=== PATIENT | female | born 1995 | race Caucasian/White ===

== ENCOUNTER 2019-09-14 15:59 | Emergency (ER) | payer OTHER, SELFPAY ==
[2019-09-14 16:00] VITALS: BP 133/78; PULSE 83; RESP 15; TEMP 36.4; O2SAT 100
[2019-09-14 18:43] VITALS: BP 129/74; PULSE 87; RESP 16; TEMP 36.4; O2SAT 99
[2019-09-14 18:43] LABS: Absolute Lymphocyte Count 2.71 X10^3/uL (0.83-4.51); Absolute Neutrophil Count 5.7 X10^3/uL (2.0-7.7); Basophil# 0.04 X10^3/uL; Basophil% 0.4 % (0-1); Eosinophil# 0.13 X10^3/uL; Eosinophils% 1.4 % (0-5); Hematocrit 35.9 % (37-47); Hemoglobin 12.2 g/dL (12.0-15.0); Lymphocyte # 2.71 X10^3/ul (4.0); Lymphocyte % 29.5 % (19-41); Mean Corpuscular Hgb 29.8 pg (27.0-32.0); Mean Corpuscular Volume 87.8 fL (81-99); Mean Platelet Vol. 11.2 fl (6.2-12.0); Monocyte# 0.61 X10^3/uL; Monocyte% 6.6 % (0-10); NRBC Flagged by Analyzer 0 % (0-5); Neutrophil # 5.67 X10^3/uL (2.7-7.7); Neutrophil % 61.7 % (47-70); Platelet Count 261 K/mm3 (150-450); RBC Distribution Width CV 11.9 % (11.6-14.6); RBC Distribution Width SD 38.5 fl (35.1-43.9); Red Blood Count 4.09 M/mm3 (4.2-5.4); White Blood Count 9.2 K/mm3 (4.4-11.0)
[2019-09-14] MEDS: Acetaminophen 500 MG Tablet 1000 MG PO (18:44)
[2019-09-14] MEDS: 0.9% Normal Saline 1,000 ML 1000 ML IV (18:45)
[2019-09-14] MEDS: Ondansetron 4 MG/2 ML Vial IV (18:45)
[2019-09-14 18:53] LABS: Mucous, Urine 0 SEEN /hpf (<or=2+); Red Blood Cells-Urine 0 SEEN /hpf (0-5)
--- NOTE | 2019-09-14 18:55 | ED.DCSUM_ITS ---
History of Present Illness Chief Complaint: Nausea/Vomiting/Diarrhea Informant: Patient Onset: Days Context: Gradual Onset Current Severity: Moderate Maximum Severity: Moderate Narrative: Patient was sent over from urgent care secondary to nausea, vomiting, and diarrhea. Patient is currently 9 weeks . She has had these symptoms for the last 3 days. She denies any abdominal cramping. She was started on Keflex for a UTI approximately 6 days ago. She believes she had a slight fever yesterday. She denies abdominal or back pain currently. She denies spotting or bleeding. Past Medical History - Allergies and Home Meds Allergies/Adverse Reactions: Allergies clindamycin Allergy (Verified 09/14/19 16:03) Rash Penicillins Allergy (Verified 09/14/19 16:03) Rash Primary Care Physician: Ankur Becerra MD [Primary Care Provider] - Past Medical History: - - Currently 9 weeks (G1, P0, Ab0) Lives: Spouse/ Significant Other Smoking Status: Former smoker Review of Systems General: Reports: Fever, Subjective Eyes: Denies: Visual changes - bilaterally ENT: Denies: Bilateral ear pain Cardiovascular: Denies: Chest pain Respiratory: Denies: Dyspnea, Cough Gastrointestinal: Reports: Nausea, Vomiting, Diarrhea. Denies: Abdominal pain Genitourinary: Denies: Dysuria Musculoskeletal: Denies: Back pain, Extremity Pain Skin: Denies: Rash Neurological: Denies: Headache Allergy: Denies: Uticaria Physical Exam Vital Signs/Narrative: Vital Signs Temp Pulse Resp BP Pulse Ox 09/14/19 18:43 97.6 F L 87 16 129/74 H 99 09/14/19 16:00 97.6 F L 83 15 133/78 H 100 Inital Vital Signs reviewed: Yes General: Well nourished, Well developed Head: Normocephalic ENT: Moist mucous membranes Neck: Supple Cardiovascular: Regular rate, Regular rhythm Respiratory: No distress, CTA bilaterally Abdomen: Soft, Nontender, Normal bowel sounds Back: Nontender Extremities: Nontender Skin: Normal color Neurological: Alert, Oriented x3 Psychological: Normal affect Diagnostic/Tx/Re-eval Laboratory Results 09/14/19 09/14/19 09/14/19 18:27 18:27 18:40 WBC 9.2 RBC 4.09 L Hgb 12.2 Hct 35.9 L MCV 87.8 MCH 29.8 MCHC 34.0 RDW Std Deviation 38.5 RDW Coeff of Kelly 11.9 Plt Count 261 MPV 11.2 Immature Gran % (Auto) 0.400 Neut % (Auto) 61.7 Lymph % (Auto) 29.5 [place] % (Auto) 6.6 Eos % (Auto) 1.4 Baso % (Auto) 0.4 Absolute Neuts (auto) 5.7 Absolute Lymphs (auto) 2.71 Nucleated RBC % 0 Sodium 138 Potassium 3.8 Chloride 110 H Carbon Dioxide 23.0 Anion Gap 5 BUN 7 Creatinine 0.58 Estim Creat Clear Calc 124.22 Est GFR (MDRD) Af Amer 165 Est GFR (MDRD) Non-Af 136 BUN/Creatinine Ratio 12.1 Glucose 79 Calcium 8.7 Urine Color Yellow Urine Clarity Cloudy Urine pH 8.0 Ur Specific [place] 1.015 Urine Protein Negative Urine Glucose (UA) Normal Urine Ketones 15 H Urine Occult Blood Negative Urine Nitrite Negative Urine Bilirubin Negative Urine Urobilinogen Normal Ur Leukocyte Esterase 100 H Urine RBC 0 SEEN Urine WBC 0-5 SEEN Ur Squamous Epith Cells 5-10 SEEN Amorphous Sediment 2+ Urine Bacteria 2+ Urine Mucus 0 SEEN - Medical Decision Making Patient was given IV fluids, Zofran, and Tylenol. On repeat evaluation she does feel improved. Lab work is unremarkable. Patient will be given a prescription for Zofran. She was encouraged to call her HEALTH SANITARIAN for close follow-up. Return for worsening symptoms. ED Disposition - Plan for ED Patient: Disposition: Home or Assisted Living Diagnosis: Vomiting Instructions: VOMITING AND DIARRHEA, Nonspecific (Adult) Prescriptions: Ondansetron [Zofran Odt] 4 mg PO Q8H PRN PRN #10 tab PRN Reason: Nausea Transmission Status: Pending to [id number] Referrals: Ankur Becerra MD [Primary Care Provider] - Razia Gomze MD [STAFF PHYSICIAN] - 1 Week
[2019-09-14 18:58] LABS: Anion Gap 5 (5-15); BUN 7 mg/dL (7-18); BUN/Creat Ratio 12.1 RATIO (10-20); Calcium,Total 8.7 mg/dL (8.5-10.1); Chloride 110 mmol/L (98-107); Creatinine, Serum 0.58 mg/dL (0.55-1.02); EST Glomerular Filtration Rate 136 mL/min (>60); Est Glom Filt Rate - Afr Amer 165 mL/min (>60); Estimated Creatinine Clearance 124.22 ml/min; Glucose 79 mg/dL (74-106); Potassium 3.8 mmol/L (3.5-5.1); Sodium Level 138 mmol/L (136-145)
[2019-09-14 19:00] LABS: Color, Urine Yellow (Yellow); Glucose, Dipstick Normal (Normal); Ketone-Dipstick 15 mg/dl (Negative); Leukocyte Esterase-Dipstick 100 /ul (Negative); Nitrite-Dipstick Negative (Negative); Occult Blood-Urine Negative /ul (Negative); Protein-Dipstick Negative (Negative); Specific Gravity, Urine 1.015 (1.002-1.030); Urine Bilirubin Dipstick Negative (Negative); Urine Clarity Cloudy (Clear); Urine Urobilinogen Normal (Normal)
[2019-09-14 19:10] LABS: Amorphous Sediment 2+; Bacteria 2+ /hpf (None Seen); Squamous Epithelial Cells - UA 5-10 SEEN /hpf (5-10); White Blood Cells 0-5 SEEN /hpf (0-5)
[2019-09-14 20:01] VITALS: BP 106/50; PULSE 79; RESP 18; O2SAT 100
== END 2019-09-14 20:02 | disposition home or self-care (01) ==
PROVIDERS: Emergency Provider Emergency Medicine; PCP Family Medicine
DX: O26.891 Other specified pregnancy related conditions, first trimester (principal); R11.2 Nausea with vomiting, unspecified; R19.7 Diarrhea, unspecified; Z3A.09 9 weeks gestation of pregnancy; Z87.891 Personal history of nicotine dependence
CPT/HCPCS: 80048; 81001; 85025; 96361; 96374; 99283; J7030; A4216; J2405

== ENCOUNTER 2020-01-10 14:53 | Observation (INO) | payer OTHER, SELFPAY ==
[2020-01-10] VITALS (9 sets, daily range): BP systolic 104–131; BP diastolic 59–77; PULSE 83–107; RESP 14–16; TEMP 36.8–37; O2SAT 98–100; BMI 24.3
--- NOTE | 2020-01-10 15:16 | CT_ITS ---
We are attempting to reach an attending provider to discuss findings. An addendum with communication details will be sent when the communication is complete. STUDY: CT ABDOMEN AND PELVIS WITH CONTRAST REASON FOR EXAM: Female, 24 years old. Right lower quadrant pain. patient. RADIATION DOSAGE (If Supplied By Facility): CTDIvol = ( 9.27 ) mGy, DLP = ( 395.75 ) mGycm TECHNIQUE: Transaxial images were obtained from the dome of the diaphragm to the symphysis pubis with oral contrast. Oral and amp; IV Gastrografin and amp; 100mL Isovue-300 was administered. Sagittal and coronal images were reconstructed. Individualized dose optimization techniques were used for this CT. COMPARISON: None. FINDINGS: The visualized lung bases are unremarkable. The visualized portions of the heart are within normal limits. Normal liver. Normal gallbladder and extrahepatic biliary system. Normal spleen. Normal pancreas. Normal bilateral adrenal glands. Both kidneys show hydronephrosis, mild on the right and trace on the left. This is consistent with the 25 week . Normal visualized stomach. Normal small intestine. Normal colon. There is a tubular, thick-walled appendix (>7mm), consistent with acute appendicitis. Appendix measures 1.5 cm greatest dimension. It has little if any significant adjacent inflammation and can be seen on axial images 57-71. No evidence for perforation or abscess. Normal abdominal aorta. Normal inferior vena cava. Normal retroperitoneum. Normal urinary bladder. There is a grossly normal-appearing second trimester intrauterine gestation. Normal abdominal wall. Normal osseous structures. CT/Abdomen/Pelvis WITH Contrast IMPRESSION: Findings consistent with uncomplicated appendicitis. Electronically Signed: Zachery Mckeon MD at 17:35 EDT , Service support ,
--- NOTE | 2020-01-10 15:19 | ED.VISSUMM ---
- ER Visit Summary Date of Service: 01/10/20 Chief Complaint: Right lower quadrant pain History of Present Illness: The patient is a 24 F presenting with right lower quadrant abdominal pain. She states this started yesterday afternoon. She complains of nausea with no vomiting. She denies urinary complaints or back pain. Denies fever. She is G1, P0, 26 weeks . She denies vaginal bleeding. She saw her OIL FIELD EQUIPMENT MECHANIC SUPERVISOR today, Dr Borrego. She was concerned about possibility of appendicitis and sent her to the ED for further evaluation. Physical Examination: Vitals are stable. Patient is afebrile. Alert no acute distress. HEENT exam is unremarkable. Neck is supple. Lungs are clear and equal bilaterally. Heart is regular rate and rhythm. Abdomen is soft gravid, RLQ tenderness. Extremities are unremarkable. Skin is warm and dry. Remainder of exam is unremarkable. Emergency Department Course and Treatment: CBC shows white count 14.9, hemoglobin 11.8. Chemistries unremarkable. CT abdomen pelvis shows appendicitis. She has allergies to clindamycin and penicillin, she was given Cefotan. Discussed with Dr. Borrego and Dr. Amezquita. Patient will be taken to the operating room. Disposition: To OR Impression: Appendicitis, This note was generated with [employer] dictation software. It may contain incorrect words, spelling, and punctuation that were not noted in review of the chart prior to signing ED Disposition - Plan for ED Patient: Referrals: Ankur Becerra MD [Primary Care Provider] -
[2020-01-10 15:45] LABS: Absolute Lymphocyte Count 2.13 X10^3/uL (0.83-4.51); Absolute Neutrophil Count 11.6 X10^3/uL (2.0-7.7); Basophil# 0.03 X10^3/uL; Basophil% 0.2 % (0-1); Eosinophils% 0.7 % (0-5); Hematocrit 35.8 % (37-47); Hemoglobin 11.8 g/dL (12.0-15.0); Lymphocyte # 2.13 X10^3/ul (4.0); Lymphocyte % 14.3 % (19-41); Mean Platelet Vol. 10.6 fl (6.2-12.0); Monocyte# 0.86 X10^3/uL; Monocyte% 5.8 % (0-10); NRBC Flagged by Analyzer 0 % (0-5); Neutrophil # 11.61 X10^3/uL (2.7-7.7); Neutrophil % 78.1 % (47-70); Platelet Count 281 K/mm3 (150-450); RBC Distribution Width CV 13.2 % (11.6-14.6); RBC Distribution Width SD 44.9 fl (35.1-43.9); Red Blood Count 3.81 M/mm3 (4.2-5.4); White Blood Count 14.9 K/mm3 (4.4-11.0)
[2020-01-10 16:01] LABS: ALB/GLOB Ratio 0.7 RATIO (0.9-2.4); AST(SGOT) 8 U/L (15-37); Alanine Aminotransfer ALT/SGPT 19 U/L (13-56); Albumin, Serum 3.1 g/dL (3.2-5.0); Alkaline Phosphatase 105 U/L (45-117); Anion Gap 5 (5-15); BUN 6 mg/dL (7-18); BUN/Creat Ratio 12.7 RATIO (10-20); Calcium,Total 8.7 mg/dL (8.5-10.1); Chloride 105 mmol/L (98-107); Creatinine, Serum 0.47 mg/dL (0.55-1.02); EST Glomerular Filtration Rate 172 mL/min (>60); Est Glom Filt Rate - Afr Amer 208 mL/min (>60); Estimated Creatinine Clearance 139.28 ml/min; Globulin 4.3 g/dL (2.2-4.2); Glucose 74 mg/dL (74-106); Potassium 3.8 mmol/L (3.5-5.1); Protein, Total 7.4 g/dL (6.4-8.2); Sodium Level 137 mmol/L (136-145)
--- NOTE | 2020-01-10 18:32 | PCM.CONS.GEN ---
Problem List (1) Acute appendicitis Status: Acute Qualifiers: Acute appendicitis type: with localized peritonitis Appendicitis gangrene presence: unspecified whether gangrene present Appendicitis perforation presence: without perforation Appendicitis abscess presence: without abscess Qualified Code(s): K35.30 - Acute appendicitis with localized peritonitis, without perforation or gangrene Reason for Consult Date of Consultation: 01/10/20 History of Present Illness: The patient is a 24 F presenting with right lower quadrant abdominal pain. She states this started yesterday afternoon. She complains of nausea with no vomiting. She denies urinary complaints or back pain. Denies fever. She is G1, P0, 26 weeks . She denies vaginal bleeding. She saw her DIRECTOR HR COMMUNICATIONS today, Dr Borrego. She was concerned about possibility of appendicitis and sent her to the ED for further evaluation. Patient underwent a CAT scan of her abdomen and pelvis which showed an uncomplicated acute appendicitis. Past Medical History Allergies clindamycin Allergy (Verified 01/10/20 14:54) Rash Penicillins Allergy (Verified 01/10/20 14:54) Rash Home Medications: Ambulatory Orders Medication Instructions Recorded Ondansetron [Zofran Odt] 4 mg PO Q8H PRN PRN #10 tab 09/14/19 Caplet 1 tab PO DAILY 09/14/19 Surgical History: - - Patient has had surgery on her right foot Smoking Status: Never smoker - *Family History Maternal History Items: No pertinent history Review of Systems Cardiovascular: Denies: Chest Pain, Chest Pressure, Chest Tightness, Palpitations Respiratory: Denies: Cough, Hemoptysis, Shortness of breath at rest, Shortness of breath upon exertion, Wheezing Gastrointestinal: Reports: Abdominal Pain Genitourinary: Denies: Dysuria, Frequency, Hematuria, Urgency Patient Problems: Active and Suspected Problems Acute appendicitis (Acute) - Physical Exam Vitals/I&O's: Vital Signs Temp Pulse Resp BP Pulse Ox 98.6 F 102 H 15 117/59 L 100 01/10/20 14:54 01/10/20 14:54 01/10/20 14:54 01/10/20 14:54 01/10/20 14:54 Oxygen Delivery Method Room Air Weight: 128 lb 15.527 oz Body Mass Index (BMI) 24.3 General: Alert, Oriented x3 Lungs: Clear to auscultation Cardiovascular: Regular rate, Regular Rhythm, No murmurs Abdomen: Tender - Patient has peritoneal irritation in the right lower quadrant. Her abdomen is soft. Uterus is palpated above the umbilicus. Extremities: No clubbing, No cyanosis, No edema Laboratory Results 01/10/20 15:35: WBC 14.9 H, RBC 3.81 L, Hgb 11.8 L, Hct 35.8 L, MCV 94.0, MCH 31.0, MCHC 33.0, RDW Std Deviation 44.9 H, RDW Coeff of Kelly 13.2, Plt Count 281, MPV 10.6, Immature Gran % (Auto) 0.900, Neut % (Auto) 78.1 H, Lymph % (Auto) 14.3 L, [place] % (Auto) 5.8, Eos % (Auto) 0.7, Baso % (Auto) 0.2, Absolute Neuts (auto) 11.6 H, Absolute Lymphs (auto) 2.13, Nucleated RBC % 0 01/10/20 15:35: Sodium 137, Potassium 3.8, Chloride 105, Carbon Dioxide 27.0, Anion Gap 5, BUN 6 L, Creatinine 0.47 L, Estim Creat Clear Calc 139.28, Est GFR (MDRD) Af Amer 208, Est GFR (MDRD) Non-Af 172, BUN/Creatinine Ratio 12.7, Glucose 74, Calcium 8.7, Total Bilirubin 0.60, AST 8 L, ALT 19, Alkaline Phosphatase 105, Total Protein 7.4, Albumin 3.1 L, Globulin 4.3 H, Albumin/Globulin Ratio 0.7 L Current Medications Cefotetan Disodium 1 gm/ (Sodium Chloride) 50 mls @ 100 mls/hr IV PREOP ONE Stop: 01/10/20 18:48 Assessment/Plan All Active Problems Acute appendicitis (Acute) Physical exam, pre-employment (Acute) My plan is to perform an open appendectomy. Risk benefits to include bleeding and infection possible wound infection possible needing to have further surgeries if she had developed an abscess. She also understands that there is a slight risk of blood clots heart attacks pneumonia strokes up to including but realistically in her age group these are significantly low. Patient also understands that there is a chance that she could go into labor I believe by doing this in an open fashion this will give her her best chance that this will not happen and has the least risk associated to her uterus fetus. I had time to ask questions I answered them. She is willing to proceed. This is an emergency case. I do not believe COVID applies. Office Visits / Consults: [id number] IP Consult L4
[2020-01-10 18:57] LABS: Bacteria 0 SEEN /hpf (None Seen); Mucous, Urine 0 SEEN /hpf (<or=2+); Red Blood Cells-Urine 0 SEEN /hpf (0-5); White Blood Cells 0 SEEN /hpf (0-5)
--- NOTE | 2020-01-10 19:00 | APP_PTH ---
PATIENT: YUNIOR ZUNIGA LOC: [facility] U#:[id number] AGE/SX: 24/F ROOM: WP014 RE01/10/[address]: Dr. Tawanda Amezquita MD : 1995 BED: 1 DIS: 01/11/2020 SPEC #: [id number] RECD: 01/11/20 07:35 STATUS: HOPE RESylvester #: [id number] PARUL: 01/10/20 19:[address]: Tawanda Amezquita DEPT: SURGICAL PATHOLOGY RECD BY: Frank Barrera ENTERED: 01/11/20 09:28 SP TYPE: APPENDIX OTHR DR: Dr. Ankur Becerra MD Tissues: Appendix, NOS Procedures: Surgery Specimen Level III HEADER OPERATION: Appendectomy PRE-OP DIAGNOSIS: Acute appendicitis TISSUE SUBMITTED: Appendix MICROSCOPIC DIAGNOSIS Appendix, appendectomy: Acute appendicitis and periappendicitis. SINCERE:jone 01/12/20 MICROSCOPIC DESCRIPTION Slides are reviewed. GROSS DESCRIPTION Received is one container labeled with the patient's name and designated appendix. The specimen consists of an appendix measuring 6 cm in length and up to 1 cm in diameter. The attached periappendiceal adipose tissue measures up to 1 cm in width. The serosa is covered with caban, purulent exudate. No obvious perforation is identified. The lumen does not contain any fecalith. Despatch Clerk sections are submitted in one cassette. / SJ:jone 01/11/20 TC:2 CPT: 54323
[2020-01-10 19:33] LABS: Color, Urine Yellow (Yellow); Glucose, Dipstick Normal (Normal); Ketone-Dipstick 15 mg/dl (Negative); Leukocyte Esterase-Dipstick Negative /ul (Negative); Nitrite-Dipstick Negative (Negative); Occult Blood-Urine Negative /ul (Negative); Protein-Dipstick Negative (Negative); Specific Gravity, Urine 1.005 (1.002-1.030); Urine Bilirubin Dipstick Negative (Negative); Urine Clarity Clear (Clear); Urine Urobilinogen Normal (Normal)
--- NOTE | 2020-01-10 19:40 | PCM.OPRPT ---
Problem List (1) Acute appendicitis Status: Acute Qualifiers: Acute appendicitis type: with localized peritonitis Appendicitis gangrene presence: unspecified whether gangrene present Appendicitis perforation presence: without perforation Appendicitis abscess presence: without abscess Qualified Code(s): K35.30 - Acute appendicitis with localized peritonitis, without perforation or gangrene Report of Operation Date of Procedure: 01/10/20 Pre-Operative Diagnosis: Acute appendicitis Post-Operative Diagnosis: Same Surgery/Procedure Performed:: Open appendectomy Type of Anesthesia:: General Anesthesiologist: Henna aMtamoros Specimen's removed: Appendix Drains: none Estimated Blood Loss (mL): < 25 cc - Admit VTE Documentation VTE Present on Admission: No VTE Mechan Device Prophylaxis: SCD's VTE Pharm Prophylaxis ordered?: No Reason prophylaxis not ordered:: Treatment Not Indicated
[2020-01-10 19:44] LABS: Squamous Epithelial Cells - UA 0-5 SEEN /hpf (5-10)
[2020-01-10] MEDS: Bupivacaine Mpf 0.5% 30 ML VIAL (19:51)
--- NOTE | 2020-01-10 20:26 | PCM.OPRPT ---
Problem List (1) Acute appendicitis Status: Acute Qualifiers: Acute appendicitis type: with localized peritonitis Appendicitis gangrene presence: unspecified whether gangrene present Appendicitis perforation presence: without perforation Appendicitis abscess presence: without abscess Qualified Code(s): K35.30 - Acute appendicitis with localized peritonitis, without perforation or gangrene Report of Operation Date of Procedure: 01/10/20 Pre-Operative Diagnosis: Acute appendicitis Post-Operative Diagnosis: Same Surgery/Procedure Performed:: Open appendectomy Type of Anesthesia:: General Anesthesiologist: Henna Matamoros Specimen's removed: Appendix Drains: None Estimated Blood Loss (mL): < 25 cc Fluids Replaced: 1 l lr Description of Procedure: Patient was brought into the operating room. Placed in the supine position. Under excellent general trach intubation a towel roll was placed under her right side placing her somewhat on her left. The abdomen was then sterilely prepped and draped in usual fashion. Local was injected incision was made in the right lower quadrant. Dissection was carried down through the external oblique fascia I pulled the rectus muscle medially grabbed the posterior fascia with 2 Enma clamps entered the peritoneum and then lengthened medially and laterally my incision gaining access to the peritoneum without difficulty I grabbed the cecum with a Nat brought up an appendix which was acutely inflamed. It came down on the mesoappendix with a harmonic dissector I had excellent hemostasis I transected the base of the appendix with a 55 linear cutter once again I had excellent hemostasis. I placed a specimen back into the abdomen inspected the uterus no injuries were seen. I irrigated the pelvis and abdomen with 500 cc of warm irrigation and retrieved it through a pool sucker. I brought the posterior sheath together with 0 Vicryl running. I did cauterize some of the external bleak fascia I brought this together with interrupted 0 Vicryls and then I closed the external oblique fascia with a running 0 Vicryl. Local was injected. Subcu irrigated. The wound was then brought together in layers subcu was brought together with interrupted 2-0 Vicryl. Deep dermal stitches of 3-0 Vicryl. Then a running 4-0 Monocryl. Steri-Strips were applied sterile dressing was applied and the patient tolerated the procedure well. - Admit VTE Documentation VTE Present on Admission: No VTE Mechan Device Prophylaxis: SCD's VTE Pharm Prophylaxis ordered?: No Reason prophylaxis not ordered:: Treatment Not Indicated [id number]: [id number] APPY; RUPT APPENDIX [place] [address] nonruptured
[2020-01-10] MEDS: Lactated Ringers 1,000 ML 75 ML IV (21:55)
[2020-01-11] VITALS (7 sets, daily range): BP systolic 84–107; BP diastolic 46–67; PULSE 85–109; RESP 18; TEMP 36.2–36.7; O2SAT 92–99
[2020-01-11] MEDS: HYDROmorphone 1 MG/ML Syringe IV ×2 (02:03→04:21)
[2020-01-11] MEDS: oxyCODONE 5 MG Tablet 10 MG PO (07:47)
--- NOTE | 2020-01-11 08:11 | DCINST_ITS ---
Discharge Diet: Light diet - advance as tolerated - if you have questions about your diet instructions, please talk to you doctor. Discharge Activity: May Not Drive - for 3-5 days or while taking narcotic pain meds. May shower in (days): 1 Call your doctor if your incision/area has: Continuous Slow Oozing, Sudden Increased Bleeding, Increased Pain/ Swelling, Increased Redness, Foul Smelling Discharge Call your doctor if you observe: Fever of 101 or Higher Suture Line Care: Avoid Pulling/Pushing, Avoid Pinching/Bending Additional Dressing/Incision Instructions:: Keep dressing clean and dry. Change or remove dressing in 2 days. Leave steri strips for 1 week. May protect with a gauze bandaid. Medications to take at Discharge Ondansetron [Zofran Odt] 4 mg PO Q8H PRN PRN #10 tab 09/14/19 Caplet 1 tab PO DAILY 09/14/19 Oxycodone HCl/Acetaminophen [Percocet 5/325] 1 - 2 tablet PO Q4H PRN PRN 6 Days #30 tablet 01/11/20 Allergies/Adverse Reactions: Allergies clindamycin Allergy (Verified 01/10/20 14:54) Rash Penicillins Allergy (Verified 01/10/20 14:54) Rash The following prescriptions were given: Oxycodone HCl/Acetaminophen [Percocet 5/325] 1 - 2 tablet PO Q4H PRN PRN 6 Days #30 tablet PRN Reason: Pain Transmission Status: Sent to [id number] Primary Care Physician: Ankur Becerra MD [Primary Care Provider] - Test Results: Test results from this visit will be discussed in further detail at your follow- up appointment, if applicable. Please Follow Up With: Tawanda Amezquita MD - [phone] When: Call to make a follow up appointment with your doctor in 1 week.
== END 2020-01-11 09:00 | disposition home or self-care (01) ==
LOC: ED 15:17 → SDC 19:52 → AC 19:54 → WP 01-11 08:04
PROVIDERS: Admitting Provider Surgery; Emergency Provider Emergency Medicine; PCP Family Medicine; Visit Provider Surgery
PROC: (CPT 44950; principal; 2020-01-10 19:00)
DX: O99.612 Diseases of the digestive system complicating pregnancy, second trimester (principal); Z3A.26 26 weeks gestation of pregnancy; K35.30 Acute appendicitis with localized peritonitis, without perforation or gangrene
CPT/HCPCS: 44950; 59025; 59050; 74177; 80053; 81001; 85025; 88304; 99218; 99282; J7030; J7120; Q9967; A4216; G0378; J2405

== ENCOUNTER 2020-04-18 06:57 | Inpatient (IN) | payer SELFPAY ==
[2020-01-10 18:34] VITALS: BMI 24.3
[2020-04-18] VITALS (62 sets, daily range): BP systolic 108–146; BP diastolic 57–85; PULSE 72–101; TEMP 36.6–37.5; O2SAT 94–100; BMI 28.3
[2020-04-18] MEDS: Lactated Ringers 1,000 ML 50 ML IV (08:20)
[2020-04-18] MEDS: Oxytocin 30 units/NS 500 ml 30 UNITS/500 ML IV.SOLN IV (08:28)
[2020-04-18 08:34] LABS: Absolute Lymphocyte Count 2.15 X10^3/uL (0.83-4.51); Absolute Neutrophil Count 8.1 X10^3/uL (2.0-7.7); Basophil# 0.04 X10^3/uL; Basophil% 0.3 % (0-1); Eosinophil# 0.09 X10^3/uL; Eosinophils% 0.8 % (0-5); Hematocrit 32.4 % (37-47); Hemoglobin 10.7 g/dL (12.0-15.0); Lymphocyte # 2.15 X10^3/ul (4.0); Lymphocyte % 18.8 % (19-41); Mean Corpuscular Hgb 29.6 pg (27.0-32.0); Mean Corpuscular Volume 89.5 fL (81-99); Mean Platelet Vol. 12.4 fl (6.2-12.0); Monocyte# 0.91 X10^3/uL; NRBC Flagged by Analyzer 0 % (0-5); Neutrophil # 8.08 X10^3/uL (2.7-7.7); Neutrophil % 70.7 % (47-70); Platelet Count 200 K/mm3 (150-450); RBC Distribution Width CV 12.5 % (11.6-14.6); RBC Distribution Width SD 40.9 fl (35.1-43.9); Red Blood Count 3.62 M/mm3 (4.2-5.4); White Blood Count 11.4 K/mm3 (4.4-11.0)
[2020-04-18] MEDS: 0.9% Normal Saline Single 100 ML IV.SOLN. IY (08:36)
[2020-04-18] MEDS: Lactated Ringers 500 ML 999 ML IV (10:31)
[2020-04-18 11:33] LABS: Amphetamine Urine VISTA NEGATIVE (<1000 ng/mL); Barbiturate Urine VISTA NEGATIVE (< 200 ng/mL); Benzodiazepine Urine VISTA NEGATIVE (< 200 ng/mL); Cocaine Urine VISTA NEGATIVE (< 300 ng/mL); Ecstacy Urine VISTA NEGATIVE (< 500 ng/mL); Methadone Urine VISTA NEGATIVE (< 300 ng/mL); PCP Urine VISTA NEGATIVE (< 25 ng/mL); THC Urine VISTA POSITIVE (< 50 ng/mL); Vista UDS pH Range 7
[2020-04-18] MEDS: fentaNYL-bupivacaine (epidural) 100 ML BAG EPIDURAL (11:43)
--- NOTE | 2020-04-18 12:41 | PCM.HP.OB ---
History Date of Admission: 04/18/20 Final CHRISTELLE: 04/19/20 Final CHRISTELLE Source: US <20 weeks Gestational age: 39 Weeks and 6 Days History of this : This is a 24 year-old, para 1 para 0 at 39-6/7 weeks gestation presents for induction due to recommendation of maternal- medicine that the patient be delivered between 3940 weeks. Patient had Covid 19 during . Been undergoing weekly monitoring with biophysical profiles. This medical history is significant for mood disorder with anxiety and depression, herpes simplex virus Medical History: Medical History (Last Reviewed 01/17/20 @ 08:57 by Tatyana Denis) Acute appendicitis (Acute) K35.80 Physical exam, pre-employment (Acute) Z02.1 Surgical History: Surgical History (Last Reviewed 01/17/20 @ 08:57 by Tatyana Denis) Hx of appendectomy (Acute) Z90.49 01/10/2020 Allergies sertraline [From Zoloft] Allergy (Unknown, Verified 04/18/20 07:30) PT UNSURE OF REACTION makes her feel like a zombie clindamycin Allergy (Verified 04/18/20 07:30) Rash fluoxetine [From Prozac] Allergy (Verified 04/18/20 07:30) Rash Penicillins Allergy (Verified 04/18/20 07:30) Rash Home Medications: Home Medications Caplet 1 tab PO DAILY 09/14/19 Smoking Status: Former smoker Alcohol: None Substance Use Type: Marijuana, Opiates Number of Fetus(es): 1 NST - FHR Rate Baby A Baseline: normal Variability:: Moderate Accelerations:: 15 x 15 Decelerations:: None NST Reactive:: Yes FHR Category:: Category I Uterine Activity:: irreg ctxs History Past Pregnancies: Past Pregnancies Delivery Date Name GA/ Weeks Outcome Route Wt Sex Labor Length Anesthesia Delivery Location Provider FOB Expected Delivery Method: Spontaneous Vaginal Review of Systems Constitutional: Denies: Chills, Fever Eyes: Denies: Blurred vision Cardiovascular: Denies: Chest Pain Respiratory: Denies: Cough Gastrointestinal: Denies: Abdominal Pain, Diarrhea, Vomiting Genitourinary: Denies: Dysuria Skin: Denies: Rash Neurological: Denies: Blurred vision, Change in Speech, Slurred speech, Confusion Physical Exam Vitals: Vital Signs Temp Pulse BP Pulse Ox 99.3 F H 74 117/71 98 04/18/20 11:45 04/18/20 12:09 04/18/20 12:09 04/18/20 12:09 General: Alert, Cooperative, No apparent distress Cardiovascular: Regular rate Lungs: Normal air movement Abdomen: Soft, Non Tender, Non-Distended, Gravid, Appropriate for Gestational Age Extremities:: Other - edema 1+ Neurological: Neuro grossly intact Assessment/Plan All Active Problems (Last Reviewed 01/17/20 @ 08:57 by Tatyana Denis) Hx of appendectomy (Acute) Acute appendicitis (Acute) Physical exam, pre-employment (Acute) This is a 24 year-old, 1 para 0 at 39-6/7 weeks gestation for induction of labor due to history of COVID-19 infection early in . Risk benefits and alternatives to induction were discussed with the patient, questions were answered to her satisfaction, consent was signed and she desires to proceed. Estimated weight is less than 4000 g clinically and pelvis clinically adequate to expect vaginal delivery. May have epidural as needed. Will undergo Romero, artificial rupture membranes and Pitocin induction of labor as needed and indicated Procedure note: At approximately 8:30 AM a Romero catheter was placed over stylette through the internal cervical os in the usual sterile fashion without difficulty. The balloon was inflated with 30 cc of normal saline and placement over the internal os was confirmed. Fetus and patient tolerated the procedure well..
[2020-04-18] MEDS: Lactated Ringers 1,000 ML 200 ML IV (15:34)
[2020-04-18] MEDS: Oxytocin 30 units/NS 500 ml 30 UNITS/500 ML IV.SOLN 334 UNITS IV (17:40)
--- NOTE | 2020-04-18 18:01 | PCM.OPRPT ---
Vaginal Delivery Maternal Presentation: Medically Indicated Induction - h/o COVID 19 infection during Method of Induction: Pitocin, Romero Bulb, Amniotomy Amniotic Membrane Rupture Type: Artificial Amniotic Fluid Description: Clear Final CHRISTELLE: 04/19/20 Final CHRISTELLE Source: US <20 weeks Gestational age: 39 Weeks and 6 Days Date of Procedure: 04/18/20 Pre-Operative Diagnosis: labor Post-Operative Diagnosis: same Surgery/ Procedure Performed: Spontaneous Vaginal Delivery Type of Anesthesia: Epidural Description of Procedure: A vigorous male infant was delivered [GALO] over a second-degree vaginal laceration. [A loose nuchal cord ?1 was easily reduced.] The remainder the infant was delivered with maternal pushing and gentle traction only in less than 15 seconds. The Pitocin infusion was initiated for active management of the third stage. The cord was clamped and cut [after 1 minute]. The infant was attended to by the waiting nursing staff. The placenta was delivered spontaneously and intact. The cervix and vagina were intact. Degree vaginal laceration was repaired with 3-0 Vicryl suture in a running standard fashion. Stasis was noted. Sponge and needle counts were correct. A vaginal sweep was completed by me. Time and Date of delivery and service 04/18/2020, 5:36 PM Presentation: GALO Placental Delivery Description: Spontaneous Placenta Disposition: [facility] Cord Vessel Description: 3 Vessels Nuchal Cord Compression: Without compression Cord Entanglement: Around neck x 1, loose Drain: Romero to straight drain Estimated Blood Loss: 200 Infant A gender: Male (1 minute): 8 (5 minute): 9 Episiotomy Description: None Laceration: 2nd degree - vaginal Medications given after delivery: IV Pitocin Complications: None
[2020-04-18] MEDS: Acetaminophen 500 MG Tablet 1000 MG PO (19:04)
[2020-04-19] VITALS (14 sets, daily range): BP systolic 108–128; BP diastolic 55–79; PULSE 75–91; RESP 16; TEMP 36.2–36.9; O2SAT 95–99
[2020-04-19] MEDS: Acetaminophen 500 MG Tablet 1000 MG PO (04:50)
--- NOTE | 2020-04-19 10:21 | PCM.PN.OB ---
Subjective: Pain well controlled, average lochia - Physical Exam Vitals/I&O's: Vital Signs Temp Pulse Resp BP Pulse Ox 98.4 F 77 16 108/55 L 98 04/19/20 07:34 04/19/20 07:35 04/19/20 07:34 04/19/20 07:35 04/19/20 07:35 Oxygen Delivery Method Room Air Weight: 67.9 kg Body Mass Index (BMI) 28.3 Intake and Output for Last 24 Hours 04/17/20 04/18/20 04/19/20 23:59 23:59 23:59 Intake Total 2456.67 / 2456.67 Output Total 800 / 800 Balance 1656.67 / 1656.67 General: Alert, Cooperative, No apparent distress Laboratory Results 04/18/20 11:05: Urine Opiates Screen NEGATIVE, Urine Methadone Screen NEGATIVE, Ur Barbiturates Screen NEGATIVE, Ur Phencyclidine Scrn NEGATIVE, Ur Amphetamines Screen NEGATIVE, U Methamphetamin-MDMA NEGATIVE, U Benzodiazepines Scrn NEGATIVE, Urine Cocaine Screen NEGATIVE, U Cannabinoids Screen POSITIVE H, Ur Drug Screen Comment Current Medications Acetaminophen (Acetaminophen 500 Mg Tablet) 1,000 mg PO Q8H PRN PRN PRN Reason: Pain Score 1-10 Last Admin: 04/19/20 04:50 Dose: 1,000 mg Documented by: Bisacodyl (Bisacodyl 10 Mg Suppository) 10 mg RECTAL UD PRN PRN Reason: If no BM Dibucaine (Dibucaine 30 Gm Tube) 1 applic TOPICAL TID PRN PRN; Protocol PRN Reason: Discomfort Hydrocortisone (Hydrocortisone 2.5% Crm) 1 applic TOPICAL TID PRN PRN; Protocol PRN Reason: Discomfort Ibuprofen (Ibuprofen 600 Mg Tablet) 600 mg PO Q6H PRN PRN PRN Reason: Pain Score 1-10 Methylergonovine Maleate (Methylergonovine 0.2 Mg/Ml Ampul) 0.2 mg IM X1 PRN PRN Reason: Excess bleeding/uterine atony Ondansetron HCl (Ondansetron 4 Mg/2 Ml Vial) 4 mg IV Q4H PRN PRN PRN Reason: Nausea Prochlorperazine Edisylate (Prochlorperazine 10 Mg/2 Ml Vial) 10 mg IV Q6H PRN PRN PRN Reason: NAUSEA/VOMITING Senna/Docusate Sodium (Senna/Docusate Sodium 1 Tablet) 1 - 2 tablet PO DAILY PRN PRN PRN Reason: Constipation Simethicone (Simethicone 80 Mg Tablet) 80 mg PO PCHS PRN PRN Reason: Indigestion/Stomach pain Sodium Chloride (0.9% Saline Lock 10 Ml Syringe) 5 - 15 ml IV UD PRN PRN Reason: SALINE FLUSH Medical Necessity - Tobacco Use Smoking Status: Former smoker Assessment/Plan All Active Problems (Last Reviewed 01/17/20 @ 08:57 by Tatyana Denis) Hx of appendectomy (Acute) Acute appendicitis (Acute) Physical exam, pre-employment (Acute) day #1 status post vaginal delivery Routine care. Nima is bottlefeeding and doing well.
[2020-04-19] MEDS: Ibuprofen 600 MG Tablet PO ×2 (12:05→20:52)
--- NOTE | 2020-04-19 15:00 | CASEMGMT ---
Social Work Assessment Labor and Delivery Unit Date of Referral: 04/18/2020 Time of Referral: 17:55 Date of Intervention: 04/19/2020 Time of Intervention: 15:00 Reason for Referral: History of anxiety and depression, Positive for THC during and on admission History obtained from: Mother of baby (MOB) and medical chart review Household composition: MOB reports she and FOB live with her mother. Patient's parent/guardian status: MOB and FOB have been together for 3 years, first child Educational Status: MOB reports to have graduated high school and completed course at [employer]. Infant Supplies: MOB reports to have all needs meet for baby including diapers, wipes, clothes, car seat, crib, bottles, formula, etc. Childcare/Caregiver(s): MOB reports she and FOB, Chaparro Francis will be main caregivers Transportation: No issues reported Programs/Agencies Involved: None Children Services/Legal Issues: None reported Behavioral Health Issues: Mental Health History: MOB admits to history of depression and anxiety and was treated with medication. MOB states currently not taking any medication and reports is feeling good. Education provided on signs/symptoms of post depression. MOB verbalized understanding. Substance Use History: MOB admits to use of THC during and states last use was 2 weeks ago. MOB reports plans to continue smoking THC and states will be bottle feeding. Maternal and Drug Screens: THC positive upon admission. Baby's urine positive for THC, meconium collected and sent out for testing. Support Systems: MOB reports good support from family and FOB's family. Depression and Anxiety/Shaken Baby/Safe Sleeping: Resources reviewed and provided. No questions or concerns per MOB. ASSESSMENT: Met with MOB and FOB in room. Introduced role and reason for referral. MOB open to speaking with this worker. MOB openly discussed mental health history and use of marijuana during . MOB reports last use to be 2 weeks ago. Informed MOB of report to [facility] regarding positive tox screen for mom and baby. MOB verbalized understanding. Discussed resources. MOB open to referral to [facility]. FOB denies any history of mental health or substance abuse. Call to Lindy with [facility] to update on positive tox screen for THC for MOB and baby. Informed meconium has been collected and sent for testing. Will call [facility] to update once results received. Safe Plan of Care for infant related to substance use: MOB reports does plan to continue use and will not use around baby. MOB informed report to be made to [facility] regarding use of THC and positive tox screens. MOB verbalized understanding. PLAN: Home with resources provided. Referral to [facility]. Report made to Lindy Chavez with [facility] regarding positive drug screen for MOB and baby. Watching for meconium results. Mery Reeves, [employer], [employer]
--- NOTE | 2020-04-19 21:14 | NURSING ---
This RN spoke to Mery Reeves [facility] to confirm that she saw and cleared this patient for discharge; Zack confirmed and stated that patient is able to be discharged to home at this time and will be in report for patient. Lorena FAUST
== END 2020-04-19 21:40 | disposition home or self-care (01) | DRG 807 ==
PROVIDERS: Admitting Provider Obstetrics & Gynecology; PCP Family Medicine; Visit Provider Obstetrics & Gynecology
DX: O98.52 Other viral diseases complicating childbirth (principal); Z37.0 Single live birth; O99.344 Other mental disorders complicating childbirth; F32.9 Major depressive disorder, single episode, unspecified; Z3A.39 39 weeks gestation of pregnancy; B00.9 Herpesviral infection, unspecified; Z86.19 Personal history of other infectious and parasitic diseases; F41.9 Anxiety disorder, unspecified; Z87.891 Personal history of nicotine dependence; O70.1 Second degree perineal laceration during delivery; O69.81X0 Labor and delivery complicated by cord around neck, without compression, not applicable or unspecified
CPT/HCPCS: 59025; 59050; 80307; 85025; 86850; 86900; 86901; 99218; J7120; G0378